=== PATIENT | male | born 1985 | race Caucasian/White ===

== ENCOUNTER 2023-02-27 08:18 | Emergency (ER) | payer MEDICAID ==
[~2023-02-27] VITALS: Ht 182.9 cm; Wt 81.6 kg
[2023-02-27 08:24] VITALS: BP_SYST 121
--- NOTE | 2023-02-27 08:30 | NUR ---
COMFORT MEASURES AND SUPPORTIVE CARE INITIATED. PT ESCORTED TO TX ROOM. PT PRESENTLY RESIDES AT [facility] AND HAS BEEN SOBER FROM METHAMPHETAMINE SINCE 02/14/23.
--- NOTE | 2023-02-27 08:34 | NUR ---
CONTINUED CARE ENDORSED TO PRIMARY RN. PT IN GOOD SPIRITS. AGREES W/ TX PLAN.
--- NOTE | 2023-02-27 08:50 | NUR ---
PT BIB SELF AWAKE AND ALERT AOX4, NO SOB. PT C/O PAIN TO R HAND, 06/14. PT DENIES TRAUMA. PT HAND IS SWOLLEN AND WARM TO THE TOUCH. PT DENIES N/V.
--- NOTE | 2023-02-27 08:51 | NUR ---
MD DR HAWLEY AT BEDSIDE
[2023-02-27] MEDS ORDERED: KETOROLAC TROMETHAMINE 60 MG/2 ML VIAL IM ONE (09:00)
[2023-02-27] MEDS ORDERED: NAPR-1172 PO (10:06)
[2023-02-27] MEDS ORDERED: ALLO100T91 PO (10:06)
[2023-02-27] MEDS ORDERED: COLC0.6T67 PO (10:06)
[2023-02-27 10:14] VITALS: BP_SYST 135
--- NOTE | 2023-02-27 10:16 | NUR ---
Patient given written and verbal discharge instructions and verbalizes understanding. ER MD discussed with patient the results and treatment provided. Patient in stable condition. ID arm band removed. Rx of ALLOPURINOL, NAPROXEN, COLCRYS given. Patient educated on pain management and to follow up with PMD. Pain Scale 4/10. Opportunity for questions provided and answered. Medication side effect fact sheet provided.
== END 2023-02-27 10:16 | disposition home or self-care (01) ==
LOC: SED 08:18
DX: M10.9 Gout, unspecified (principal); R22.31 Localized swelling, mass and lump, right upper limb; F17.200 Nicotine dependence, unspecified, uncomplicated; Z79.899 Other long term (current) drug therapy
CPT/HCPCS: 99283; 96372; J1885